=== PATIENT | female | born 2000 | race Caucasian/White ===

== ENCOUNTER 2020-01-24 19:28 | Emergency (ER) | payer OTHER ==
[~2020-01-24] VITALS: Ht 160 cm; Wt 59.0 kg
[2020-01-24 20:12] LABS: URINE BILIRUBIN NEGATIVE (Negative); URINE BLOOD NEGATIVE (Negative); URINE CLARITY SL CLOUDY; URINE COLOR YELLOW; URINE GLUCOSE-RANDOM NEGATIVE (Negative); URINE KETONES NEGATIVE (Negative); URINE LEUKOCYTES-REFLEX TRACE (Negative); URINE PROTEIN TRACE (Negative); URINE UROBILINOGEN 0.2 E.U./dl (0.2-1.0)
[2020-01-24 20:13] LABS: URINE NITRITE-REFLEX POSITIVE (Negative)
[2020-01-24 20:18] LABS: BACTERIA-REFLEX >30 Many /HPF (None Seen); SQUAMOUS >10 Many /LPF (0-3); URINE WBC-REFLEX 6-15 Few /HPF (0-5)
[2020-01-24 20:19] LABS: CASTS None Seen /LPF (None Seen); CRYSTALS None Seen /LPF (None Seen); MUCUS 0-3 Light strn/LPF (None Seen)
[2020-01-24 20:20] LABS: URINE RBC None Seen /HPF (0-2)
[2020-01-24 20:44] LABS: ABSOLUTE LYMPHOCYTES 1.7 thou/uL (0.8-5.3); ABSOLUTE MONOCYTES 0.6 thou/uL (0.0-1.2); ABSOLUTE NEUTROPHILS 4.5 thou/uL (1.6-8.1); BASOPHILS 0.4 %; EOSINOPHILS 0.7 %; HEMATOCRIT 34.4 % (37.0-47.0); HEMOGLOBIN 11.7 gm/dL (12.0-15.0); LYMPHOCYTES 24.4 %; MCH 30.3 pg (26.0-34.0); MCHC 34.2 g/dL (28.0-37.0); MCV 88.6 fL (80.0-100.0); MONOCYTES 9.3 %; MPV 7.6 fl. (7.2-11.1); NUCLEATED RBCS 0 /100WBC; PLATELET COUNT* 277 thou/uL (150-400); POLYS 65.2 %; RBC 3.88 mil/uL (4.20-5.00); RDW-CV 14.2 % (10.5-14.5); WBC 6.9 thou/uL (4.0-11.0)
[2020-01-24 20:48] LABS: CALCIUM 8.2 mg/dL (8.5-10.1); CREATININE 0.8 mg/dL (0.6-1.3); POTASSIUM 3.5 mmol/L (3.5-5.1)
[2020-01-24 20:52] LABS: ALBUMIN 3.6 g/dL (3.4-5.0); TOTAL BILIRUBIN 0.3 mg/dL (<0.1-1.0); TOTAL PROTEIN 6.4 g/dL (6.4-8.2)
[2020-01-24] MEDS ORDERED: ONDANSETRON HCL4 M2 PO (21:43)
[2020-01-24] MEDS ORDERED: BENTYL 20 MG TA20 M1 PO (21:43)
[2020-01-24] MEDS ORDERED: KEFLEX500 M1 PO (21:52)
[2020-01-24 22:07] VITALS: BP 95/48
== END 2020-01-24 22:07 | disposition home or self-care (01) ==
LOC: M.ERS 19:28
PROVIDERS: Nurse Practitioner Family
DX: K52.9 Noninfective gastroenteritis and colitis, unspecified (principal); N39.0 Urinary tract infection, site not specified; R11.2 Nausea with vomiting, unspecified; F17.210 Nicotine dependence, cigarettes, uncomplicated; Z90.49 Acquired absence of other specified parts of digestive tract